=== PATIENT | male | born 1995 | race Caucasian/White ===

== ENCOUNTER 2023-02-03 18:22 | Emergency (ER) | payer SELFPAY ==
[~2023-02-03] VITALS: Ht 182.9 cm; Wt 84.1 kg
[2023-02-03 18:45] VITALS: BP 150/94; PULSE 86; RESP 18; TEMP 98.1; O2SAT 97
== END 2023-02-03 18:47 ==
LOC: ER 18:23
DX: F10.129 Alcohol abuse with intoxication, unspecified (principal); Y90.9 Presence of alcohol in blood, level not specified
CPT/HCPCS: 99283